=== PATIENT | male | born 1995 | race Caucasian/White ===

== ENCOUNTER 2023-10-18 11:08 | Emergency (ER) | payer OTHER ==
[~2023-10-18] VITALS: Ht 170.2 cm; Wt 66.4 kg
[2023-10-18] MEDS ORDERED: SERTRALINE HCL50 MG PO (11:33)
[2023-10-18] MEDS: LIDOCAINE HCL 1% LOCAL INJ 20 ML VIAL INJ ONE (11:49)
[2023-10-18] MEDS: TRAMADOL HCL 50 MG TAB PO ONE (11:49)
[2023-10-18] MEDS: AMOXICILLIN/CLAVULANATE K 875 MG TAB PO STA (11:49)
[2023-10-18] MEDS: TETANUS/DIPHTHERIA TOX ADULT 0.5 ML SYR IM ONE (11:50)
[2023-10-18] MEDS: BACITRACIN ZINC 0.9GM TP ONE (12:05)
[2023-10-18] MEDS ORDERED: AMOX TR-K CLV1 EAC2 PO (13:08)
[2023-10-18] MEDS ORDERED: MUPIROCIN22 GM TOP (13:09)
[2023-10-18 13:31] VITALS: PULSE 74; RESP 16; TEMP 98.8; O2SAT 99
== END 2023-10-18 13:31 | disposition home or self-care (01) ==
LOC: FSED 11:26
DX: S61.451A Open bite of right hand, initial encounter (principal); W54.0XXA Bitten by dog, initial encounter; Y92.89 Other specified places as the place of occurrence of the external cause; F32.A Depression, unspecified; F17.210 Nicotine dependence, cigarettes, uncomplicated
CPT/HCPCS: 12002; 73130; 90471; 90714; 96372; 99284; J2001

== ENCOUNTER 2023-10-25 12:01 | Emergency (ER) | payer OTHER ==
[~2023-10-25] VITALS: Ht 170.2 cm; Wt 66.2 kg
[2023-10-25 12:01] VITALS: PULSE 99; RESP 18; TEMP 97.3
[~2023-10-25 12:01] MED LIST: AMOX TR-K CLV1 EAC2 PO; MUPIROCIN22 GM TOP; SERTRALINE HCL50 MG PO
[2023-10-25 14:57] VITALS: BP 116/58; PULSE 68; RESP 16; TEMP 98.3; O2SAT 98
== END 2023-10-25 12:30 | disposition home or self-care (01) ==
LOC: FSED 12:15
DX: Z48.02 Encounter for removal of sutures (principal)
CPT/HCPCS: 99283